=== PATIENT | male | born 1955 | race Caucasian/White ===

== ENCOUNTER → 2016-04-19 | Outpatient (CLI) | payer BC ==
[2016-04-19 11:04] LABS: CHOLESTEROL/HDL RATIO 2.6; PROSTATE SPECIFIC ANTIGEN 2.53 ng/ml (0.000-4.000)
== END | disposition home or self-care (01) ==
LOC: C.LAB 07:30
DX: Z13.220 Encounter for screening for lipoid disorders (principal); N40.0 Benign prostatic hyperplasia without lower urinary tract symptoms; R73.9 Hyperglycemia, unspecified

== ENCOUNTER → 2016-10-13 | Outpatient (CLI) | payer BC | END | disposition home or self-care (01) | LOC: C.LAB 06:54 | DX: R97.20 Elevated prostate specific antigen [PSA] (principal) ==

== ENCOUNTER → 2017-06-28 | Outpatient (CLI) | payer BC ==
[2017-06-28 09:38] LABS: BLOOD UREA NITROGEN 30 mg/dl (7-18); CALCIUM 9.3 mg/dl (8.5-10.1); CARBON DIOXIDE 28 mmol/L (21-32); GLUCOSE 86 mg/dl (70-99); GLUCOSE,FASTING 86 mg/dl (70-99); POTASSIUM 4.2 mmol/L (3.5-5.1); SODIUM 139 mmol/L (136-145)
== END | disposition home or self-care (01) ==
LOC: C.LAB 07:07
DX: N40.0 Benign prostatic hyperplasia without lower urinary tract symptoms (principal); Z13.220 Encounter for screening for lipoid disorders